=== PATIENT | female | born 1935 | race Hispanic/Latino ===

== ENCOUNTER 2018-06-21 13:37 | Inpatient (IN) | payer MEDICARE, OTHER ==
[~2018-06-21] VITALS: Ht 149.9 cm; Wt 71.2 kg
[~2018-06-21 13:37] MED LIST: ATORVASTATIN CA20 MG PO; FEXOFENADINE H180 MG PO; FUROSEMIDE20 MG PO; FUROSEMIDE40 MG PO; HYDRALAZINE HCL50 MG PO; LEVEMIR100 UNIT/1 SQ; LOSARTAN POTAS100 MG PO; METFORMIN HCL1000 MG PO; METOPROLOL SUCC25 MG PO; NORVASC5 MG PO; NOVOLIN 70100 UNITS/ SC; OMEPRAZOLE20 MG PO; OXYBUTYNIN CHLO10 MG PO; SYNTHROID50 MCG PO; TRUJEO SC; XARELTO10 MG PO; ZANTAC150 MG PO
[2018-06-21] MEDS ORDERED: MORPHINE SULFATE INJ 4 MG/ML INJ IV STA (14:03)
[2018-06-21] MEDS ORDERED: ONDANSETRON HCL INJ 2 MG/ML VIAL IV STA (14:03)
[2018-06-21] MEDS ORDERED: SODIUM CHLORIDE 0.9% 500ML 500 ML IV STA (14:03)
[2018-06-21] MEDS ORDERED: DIATRIZOATE MEGL/DIATRIZOA SOD 30 ML BTL PO ONE (14:16)
[2018-06-21 14:53] LABS: BASOPHILS % 0.3 % (0.0-1.0); HEMATOCRIT 34.7 % (34.2-44.1); HEMOGLOBIN 11.4 g/dL (12.0-16.0); LYMPHOCYTES # (AUTO) 1.1 (1.0-3.2); LYMPHOCYTES % 9.5 % (18.0-39.1); MEAN CORPUSCULAR HEMOGLOBIN 28.9 pg (28-32); MEAN CORPUSCULAR HGB CONC 32.9 g/dL (31-35); MEAN CORPUSCULAR VOLUME 88.1 fL (81-99); MONOCYTES # (AUTO) 0.9 (0.2-0.8); MONOCYTES % 7.4 % (4.4-11.3); NEUTROPHILS # (AUTO) 9.8 (2.1-6.9); NEUTROPHILS % 82.5 % (38.7-80.0); PLATELET COUNT 223 x10e3/uL (140-360); RED BLOOD COUNT 3.94 x10e6/uL (3.6-5.1); RED CELL DISTRIBUTION WIDTH 14.2 % (11.7-14.4)
[2018-06-21 14:59] LABS: INR 1.05; PROTHROMBIN TIME 14.6 seconds (11.9-14.5)
[2018-06-21 15:00] LABS: BILIRUBIN,URINE NEGATIVE (NEGATIVE); CLARITY,URINE SL CLOUDY (CLEAR); COLOR,URINE YELLOW (YELLOW); KETONES,URINE NEGATIVE (NEGATIVE); LEUKOCYTE ESTERASE ,URINE NEGATIVE (NEGATIVE); NITRITE,URINE NEGATIVE (NEGATIVE); PARTIAL THROMBOPLASTIN TIME 50.9 seconds (23.8-35.5); PROTEIN,URINE DIPSTICK 2+ (NEGATIVE); URINE UROBILINOGEN 0.2 mg/dL (0.2 - 1)
[2018-06-21 15:05] LABS: BACTERIA,URINE MANY /HPF; EPITHELIAL CELLS,URINE MANY /LPF; TRANSITIONAL EPI CELLS,URINE MODERATE; WBC,URINE (MAN) 0-5 /HPF (0-5)
[2018-06-21 15:09] LABS: ALBUMIN 3.5 g/dL (3.5-5.0); ALBUMIN/GLOBULIN RATIO 0.8 (0.8-2.0); ANION GAP 14.9 mmol/L (8-16); CREATININE, SERUM 2.02 mg/dL (0.57-1.11); MAGNESIUM 1.8 MG/DL (1.3-2.1); POTASSIUM 3.9 mmol/L (3.5-5.1)
--- NOTE | 2018-06-21 15:11 | Diagnostic Imaging Report ---
EXAMINATION: CHEST SINGLE (PORTABLE) INDICATION: Left-sided rib pain COMPARISON: None FINDINGS: TUBES and LINES: None. LUNGS: Perihilar peribronchial hazy opacity could be due to bronchitis or pulmonary edema. There may be a small left pleural effusion. PLEURA: No pneumothorax. HEART AND MEDIASTINUM: The cardiomediastinal silhouette is unremarkable. BONES AND SOFT TISSUES: No acute osseous lesion. Soft tissues are unremarkable. UPPER ABDOMEN: No free air under the diaphragm. IMPRESSION: Perihilar peribronchial hazy opacity could be due to bronchitis or pulmonary edema. There may be a small left pleural effusion. Follow-up imaging is indicated to document clearing Signed by: Dr. Hasmukh Yates M.D. on 06/21/2018 3:07 PM
[2018-06-21 15:15] LABS: CREATINE KINASE MB 0.6 ng/mL (0-5.0)
--- NOTE | 2018-06-21 17:02 | Diagnostic Imaging Report ---
EXAM: CT Abdomen and Pelvis WITHOUT contrast INDICATION: Abdominal pain. Epigastric pain. Nausea. COMPARISON: None. TECHNIQUE: Abdomen and pelvis were scanned utilizing a multidetector helical scanner from the lung base to the pubic symphysis without administration of IV contrast. Absence of intravenous contrast decreases sensitivity for detection of focal lesions and vascular pathology. Coronal and sagittal reformations were obtained. Routine protocol was performed. IV CONTRAST: None. ORAL CONTRAST: Gastrografin RADIATION DOSE: Total DLP: 435.73 mGy*cm Estimated effective dose: (DLP x 0.015 x size factor) mSv COMPLICATIONS: None FINDINGS: LINES and TUBES: None. LOWER THORAX: Moderate size right and small left pleural effusion with associated atelectasis. Small hiatal hernia. HEPATOBILIARY: Nodular contour to the liver could be due to cirrhosis. No focal hepatic lesions. No biliary ductal dilation. GALLBLADDER: Surgical clips in the gallbladder fossa. SPLEEN: No splenomegaly. PANCREAS: No focal masses or ductal dilatation. ADRENALS: No adrenal nodules KIDNEYS/URETERS: No hydronephrosis. No cystic or solid mass lesions. No stones. Mild perinephric fat stranding could be due to chronic medical renal disease. GI TRACT: Questionable gastric mucosal thickening could be due to gastritis. No bowel obstruction. Appendix is normal. PELVIC ORGANS/BLADDER: Unremarkable. LYMPH NODES: No lymphadenopathy. VESSELS: Scattered atherosclerotic vascular calcification. PERITONEUM / RETROPERITONEUM: No free air or fluid. BONES: Scattered degenerative change. SOFT TISSUES: Unremarkable. IMPRESSION: Limited study without the use of IV contrast. The detection and characterization of small masses and abscesses is limited without the use of IV contrast. Questionable gastric mucosal thickening could be due to gastritis. GI consultation recommended. Mild perinephric fat stranding could be due to chronic medical renal disease. Moderate size right and small left pleural effusion with associated atelectasis. Nodular contour to the liver could be due to cirrhosis. A nonemergent MRI of the abdomen is recommended for further evaluation. Signed by: Dr. Hasmukh Yates M.D. on 06/21/2018 4:58 PM
[2018-06-21] MEDS ORDERED: ASPIRIN 81 MG CHEW TAB PO ONE (17:45)
[2018-06-21] MEDS ORDERED: ONDANSETRON HCL INJ 2 MG/ML VIAL IV PRN (17:45)
[2018-06-21 20:40] VITALS: BP 185/79
[2018-06-21 21:43] VITALS: BP 185/79
[2018-06-21 23:40] VITALS: BP 181/79
[2018-06-22] VITALS (7 sets, daily range): BP systolic 144–201; BP diastolic 66–83
[2018-06-22 05:06] LABS: BASOPHILS % 0.5 % (0.0-1.0); EOSINOPHILS # (AUTO) 0.1 (0.0-0.4); EOSINOPHILS % 0.7 % (0.0-6.0); HEMATOCRIT 31.8 % (34.2-44.1); HEMOGLOBIN 10.6 g/dL (12.0-16.0); LYMPHOCYTES # (AUTO) 1.2 (1.0-3.2); LYMPHOCYTES % 13.6 % (18.0-39.1); MEAN CORPUSCULAR HEMOGLOBIN 28.9 pg (28-32); MEAN CORPUSCULAR HGB CONC 33.3 g/dL (31-35); MEAN CORPUSCULAR VOLUME 86.6 fL (81-99); MONOCYTES # (AUTO) 0.9 (0.2-0.8); MONOCYTES % 10.6 % (4.4-11.3); NEUTROPHILS # (AUTO) 6.4 (2.1-6.9); NEUTROPHILS % 74.4 % (38.7-80.0); PLATELET COUNT 195 x10e3/uL (140-360); RED BLOOD COUNT 3.67 x10e6/uL (3.6-5.1)
[2018-06-22 05:33] LABS: ANION GAP 13.1 mmol/L (8-16); CALCIUM 8.4 mg/dL (8.4-10.2); CREATININE, SERUM 1.76 mg/dL (0.57-1.11); POTASSIUM 4.1 mmol/L (3.5-5.1)
[2018-06-22 05:42] LABS: CREATINE KINASE MB 0.8 ng/mL (0-5.0)
--- NOTE | 2018-06-22 07:41 | Diagnostic Imaging Report ---
CHEST SINGLE (PORTABLE), 06/22/2018 7:00 AM Technique: CHEST SINGLE (PORTABLE) Comparison: Previous day Clinical history: Chest pain Findings: See Impression Impression: 1. Enlarged cardiac silhouette. 2. Increased diffuse opacities, likely edema with bibasilar atelectasis and layering effusions. Signed by: Dr Duyen Conner MD on 06/22/2018 6:33 AM
[2018-06-22] MEDS: FUROSEMIDE INJ 10 MG/ML 4 ML VIAL IV SCH (16:51)
[2018-06-22] MEDS ORDERED: HYDROMORPHONE 1MG/1ML INJ IV PRN (17:00)
[2018-06-22] MEDS: SODIUM CHLORIDE FLUSH 10 ML SYR INJ PRN ×2 (17:02→17:40)
[2018-06-22] MEDS ORDERED: HYDROMORPHONE 2MG/ML 2 MG/ML ML IV NR (17:30)
[2018-06-22] MEDS ORDERED: NALOXONE HCL INJ 0.4 MG/ML AMP IV PRN (18:30)
[2018-06-22] MEDS ORDERED: NALOXONE HCL INJ 0.4 MG/ML AMP ONE (18:33)
[2018-06-22] MEDS ORDERED: METOPROLOL TARTRATE INJ 1 MG/ML VIAL IV NR (18:45)
[2018-06-22] MEDS ORDERED: METOPROLOL TARTRATE INJ 1 MG/ML VIAL IV PRN (18:45)
--- NOTE | 2018-06-22 19:42 | Diagnostic Imaging Report ---
EXAMINATION: Head CT without contrast. HISTORY:Altered mental status. COMPARISON:CT and MRI brain from 12/14/2016. TECHNIQUE: Multidetector axial images were obtained from the foramen magnum to the vertex without contrast. The images were reconstructed using brain and bone algorithms. Thin section brain images were reformatted into coronal and sagittal planes. Dose modulation, iterative reconstruction, and/or weight based adjustment of the mA/kV was utilized to reduce the radiation dose to as low as reasonably achievable. Intravenous contrast: None IMAGE QUALITY: Suboptimal evaluation particularly of the skull base and posterior fossa structures due to streak artifacts. FINDINGS: Skull/scalp: No lytic or blastic. lesions. No surgical changes. Parenchyma: Nonspecific supratentorial white matter patchy hypodensity are likely related to small vessel ischemic changes. No acute hemorrhage, mass or acute major vascular territorial infarct. Arteries: No density suggestive of thrombosis. Atherosclerotic calcification in bilateral carotid siphon. Dural sinuses: No abnormal density suggestive of thrombosis. Ventricles: No hydrocephalus or displacement. 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 Brain volume: Normal for age. Craniocervical junction: No mass, Chiari malformation, or basilar invagination. Sella: No mass. Paranasal/mastoid sinuses: Imaged portions unremarkable. IMPRESSION: No acute intracranial abnormality. Mild to moderate supratentorial white matter microvascular ischemic changes. Signed by: Dr. Paula Roberts M.D. on 06/22/2018 7:41 PM
[2018-06-22] MEDS ORDERED: LOSARTAN POTASSIUM 100 MG TAB PO SCH (21:00)
[2018-06-22] MEDS ORDERED: FUROSEMIDE 40 MG TAB PO SCH (21:00)
[2018-06-22] MEDS: ATORVASTATIN 20 MG TAB PO SCH (21:37)
[2018-06-23] VITALS (8 sets, daily range): BP systolic 122–177; BP diastolic 56–77
[2018-06-23 05:06] LABS: BASOPHILS % 0.3 % (0.0-1.0); EOSINOPHILS % 0.1 % (0.0-6.0); HEMATOCRIT 35.1 % (34.2-44.1); HEMOGLOBIN 11.7 g/dL (12.0-16.0); LYMPHOCYTES # (AUTO) 1.1 (1.0-3.2); LYMPHOCYTES % 9.2 % (18.0-39.1); MEAN CORPUSCULAR HGB CONC 33.3 g/dL (31-35); MEAN CORPUSCULAR VOLUME 87.1 fL (81-99); MONOCYTES # (AUTO) 0.7 (0.2-0.8); MONOCYTES % 6.1 % (4.4-11.3); NEUTROPHILS # (AUTO) 9.6 (2.1-6.9); NEUTROPHILS % 83.9 % (38.7-80.0); PLATELET COUNT 241 x10e3/uL (140-360); RED BLOOD COUNT 4.03 x10e6/uL (3.6-5.1); RED CELL DISTRIBUTION WIDTH 13.6 % (11.7-14.4)
[2018-06-23 05:30] LABS: ANION GAP 16.3 mmol/L (8-16); CALCIUM 8.8 mg/dL (8.4-10.2); CREATININE, SERUM 2.22 mg/dL (0.57-1.11); POTASSIUM 4.3 mmol/L (3.5-5.1)
[2018-06-23] MEDS: LEVOTHYROXINE SODIUM 50 MCG TAB PO SCH (06:13)
[2018-06-23] MEDS ORDERED: FUROSEMIDE 40 MG TAB PO SCH ×2 (09:00)
--- NOTE | 2018-06-23 09:08 | Consultation ---
DATE OF CONSULTATION: June 22, 2018 CARDIOLOGY CONSULTATION REFERRING PHYSICIAN: Dr. Armen Gonzalez REASON FOR CONSULTATION: CHF. HPI: This is a pleasant, 82-year-old female that presented with epigastric pain. According to the patient, for the last 4 to 5 days, she has been having epigastric pain accompanied with nausea, not able to eat, so she came in for evaluation. She said the pain also gets worse with deep breathing and coughing. In the emergency room, she was found with AFib with RVR. She was given 5 mg of metoprolol IV, and the heart rate slowed down. She also stated yesterday she was in a lot of pain. She was given some Dilaudid for pain, and it made her feel real bad. They had to call rapid response and gave her some Narcan to reverse the effect. She denies any palpitations, any diaphoresis, any dizziness, any shortness of breath or headache. Troponin times 3 was negative. EKG showed slow AFib with heart rate in the 50s. BNP was 752. Chest x-ray showed possible pulmonary edema with small left pleural effusion. PAST MEDICAL HISTORY: CKD, stroke, pulmonary hypertension, hyperlipidemia, chronic pain, CHF type unknown, diabetes, hypothyroidism. PAST SURGICAL HISTORY: Cholecystectomy and hysterectomy. FAMILY HISTORY: Noncontributory. SOCIAL HISTORY: No smoking. No drinking. She lives at home alone by herself. MEDICATIONS: She was on Synthroid, atorvastatin, Losartan, Norvasc, insulin, Zantac, furosemide, amlodipine, and Xarelto. ALLERGIES: SHE IS ALLERGIC TO PENICILLIN. REVIEW OF SYSTEMS: Negative, except those mentioned above. PHYSICAL EXAMINATION VITAL SIGNS: Temperature 97, heart rate 50, blood pressure 137/63, respirations 19, oxygen saturation 99% on 2 L nasal cannula. GENERAL: She is awake, alert and oriented times 3. HEENT: Mucous membranes are moist. NECK: Supple. LUNGS: Bilaterally with decreased breath sounds. CARDIOVASCULAR: Irregularly irregular. ABDOMEN: Soft. Still complaining of pain. NEUROLOGIC: Intact. EXTREMITIES: No edema. LABS: Sodium 135, potassium 4.3, chloride 100, CO2 23, BUN 37, creatinine 2.22, glucose 173. White blood cells 11.4, hemoglobin 11.7, hematocrit 35.1, platelets 241. PT 14.6, PTT 50.9, INR 1.05. IMPRESSION 1. Congestive heart failure, type unknown. 2. Abdominal pain. 3. Slow atrial fibrillation. 4. Diabetes. 5. Chronic kidney disease. 6. Hypothyroidism. ASSESSMENT AND PLAN 1. We will go ahead and get an echocardiogram to assess the LV and valve function. 2. Heart rate is on the low side. She received some IV metoprolol yesterday that slowed the heart rate down. She is asymptomatic, so we will go ahead and avoid beta fransisco for now. 3. Will continue low salt diet and put her on 1.5-liter fluid restriction. 4. Continue her home medications. 5. If any surgical procedure is planned, we will go ahead and hold the Xarelto. 6. Will continue diuretics. 7. Further cardiac workup pending clinical course. Thank you for this consultation. Dictated by Hollis Davis NP Job#: [id number]
[2018-06-23] MEDS: FUROSEMIDE INJ 10 MG/ML 4 ML VIAL IV SCH (09:16)
[2018-06-23] MEDS: RIVAROXABAN 10 MG TABLET PO SCH (09:16)
[2018-06-23] MEDS: FAMOTIDINE 20 MG TAB PO SCH (09:16)
[2018-06-23] MEDS: PANTOPRAZOLE 40 MG 10ML VIAL IV SCH (09:16)
[2018-06-23] MEDS: AMLODIPINE BESYLATE 5 MG TAB PO SCH (09:16)
[2018-06-23] MEDS: ATORVASTATIN 20 MG TAB PO SCH (20:02)
[2018-06-24 04:10] VITALS: BP 110/56
[2018-06-24] MEDS: LEVOTHYROXINE SODIUM 50 MCG TAB PO SCH (06:32)
[2018-06-24 07:35] VITALS: BP 165/73
[2018-06-24 08:05] VITALS: BP 165/73
[2018-06-24] MEDS: PANTOPRAZOLE 40 MG 10ML VIAL IV SCH (08:06)
[2018-06-24] MEDS: FUROSEMIDE INJ 10 MG/ML 4 ML VIAL IV SCH (08:06)
[2018-06-24] MEDS: RIVAROXABAN 10 MG TABLET PO SCH (08:07)
[2018-06-24] MEDS: AMLODIPINE BESYLATE 5 MG TAB PO SCH (08:07)
[2018-06-24] MEDS: FAMOTIDINE 20 MG TAB PO SCH (08:07)
[2018-06-24] MEDS ORDERED: HYDRALAZINE HCL25 MG PO (08:56)
[2018-06-24] MEDS ORDERED: GLYBURIDE5 MG PO (08:56)
[2018-06-24] MEDS ORDERED: NITROGLYCERIN0.4 MG SL (08:56)
[2018-06-24 11:45] VITALS: BP 135/63
[2018-06-24] MEDS ORDERED: DEXTROSE 50% SYRINGE 50 ML IV PRN (13:00)
--- NOTE | 2018-06-24 16:15 | Consultation ---
DATE OF CONSULTATION: June 24, 2018 RENAL CONSULTATION HISTORY OF PRESENT ILLNESS: This is an 82-year-old female who is known to our nephrology service, follows up with Dr. Moreno, my associate, as an outpatient for chronic kidney disease stage 3, underlying diabetic nephropathy. Presented with abdominal pain. Mostly the pain is on the left side. She has been having heartburn and burning in the stomach area. Dr. Portillo Gonzalez is on the case. __PHYSICAL EXAMINATION: GENERAL: Currently awake, alert, lying supine, no apparent distress. VITAL SIGNS: Blood pressure of 135/63, pulse rate 48, afebrile, respiratory rate 17. HEAD AND NECK: Cornea clear. Oral mucosa dry. LUNGS: Relatively clear. No rales. HEART: S1/S2 audible. ABDOMEN: Otherwise soft, nontender. LOWER EXTREMITIES: No edema. CURRENT MEDICATIONS: Ondansetron p.r.n. Famotidine 220 mg daily. Rivaroxaban 50 mg daily. Furosemide 40 mg daily. Amlodipine 10 mg daily. Insulin, lispro. Levothyroxine 50 mcg daily. Atorvastatin, pantoprazole, metoprolol p.r.n. PAST HISTORY: History of pulmonary hypertension. Hyperlipidemia. CHF. Diabetes. Hypothyroidism. Prior cholecystectomy, hysterectomy. History of stroke. Chronic kidney disease stage 3. SOCIAL HISTORY: Does not smoke or drink. FAMILY HISTORY: Significant for hypertension. __PHYSICAL EXAMINATION: GENERAL: Awake, alert, oriented times 3, lying supine in bed. No apparent distress. VITALS: Blood pressure 135/63. Pulse rate 48. Afebrile. HEAD AND NECK: Cornea clear. Oral mucosa dry. LUNGS: Relatively clear. No rales or rhonchi. HEART: S1/S2 audible. ABDOMEN: Otherwise soft, nontender. LOWER EXTREMITY EXAMINATION: Shows no clearcut edema. IMPRESSION: [id number] kidney failure, underlying chronic kidney disease 3, possibly 4. Will obtain records from our office. Will obtain spot urine protein-creatinine ratio. Kidney ultrasound. I suspect she probably has irritable bowel syndrome. Labs show sodium 135. Potassium 4.3. Bicarbonate 23. Creatinine 2.2. Hemoglobin 11.7. INR 1.05. AST 24. ALT 13. Alkaline phosphatase 142. Total bilirubin 1.8. Workup ordered. Discussed with patient. I will discuss with Dr. Portillo Gonzalez. Job#: [id number] EV
[2018-06-24 16:20] VITALS: BP 149/67
[2018-06-24] MEDS: INSULIN LISPRO 100 UNIT/1 ML 3ML VIAL SQ SCH ×3 (16:50→21:15)
[2018-06-24 20:00] VITALS: BP 152/58
[2018-06-24] MEDS: ATORVASTATIN 20 MG TAB PO SCH (21:10)
[2018-06-25] VITALS (8 sets, daily range): BP systolic 118–181; BP diastolic 47–73
[2018-06-25] MEDS: MECLIZINE HCL 12.5 MG TAB PO SCH ×3 (02:10→20:55)
[2018-06-25 05:08] LABS: ALBUMIN 2.8 g/dL (3.5-5.0); ALBUMIN/GLOBULIN RATIO 0.7 (0.8-2.0); ANION GAP 15.5 mmol/L (8-16); CALCIUM 8.4 mg/dL (8.4-10.2); CREATININE, SERUM 3.51 mg/dL (0.57-1.11); POTASSIUM 4.5 mmol/L (3.5-5.1)
[2018-06-25] MEDS: LEVOTHYROXINE SODIUM 50 MCG TAB PO SCH (06:45)
[2018-06-25] MEDS: INSULIN LISPRO 100 UNIT/1 ML 3ML VIAL SQ SCH ×4 (07:30→20:55)
[2018-06-25] MEDS: RIVAROXABAN 10 MG TABLET PO SCH (09:00)
[2018-06-25] MEDS ORDERED: MECLIZINE HCL 12.5 MG TAB PO SCH (09:00)
[2018-06-25] MEDS: FUROSEMIDE INJ 10 MG/ML 4 ML VIAL IV SCH (09:00)
--- NOTE | 2018-06-25 09:19 | Diagnostic Imaging Report ---
EXAMINATION: Renal ultrasound. CLINICAL HISTORY :Acute kidney injury, left flank pain COMPARISON: <None available.> TECHNIQUE: Grayscale and color Doppler evaluation of the kidneys and bladder was performed in transverse and longitudinal planes. DISCUSSION: RIGHT KIDNEY: The right kidney measures 10.3 cm in length and shows increased echogenicity. No hydronephrosis, shadowing calculi or solid mass lesions. LEFT KIDNEY: The left kidney measures 10.6 cm in length and shows increased echogenicity. No hydronephrosis, shadowing calculi or solid mass lesions. BLADDER: Unremarkable. IMPRESSION: Increased renal echogenicity reflective of nonspecific medical renal disease. No obstruction. Signed by: Dr. Hunter Zapata M.D. on 06/25/2018 9:16 AM
[2018-06-25] MEDS: PANTOPRAZOLE 40 MG 10ML VIAL IV SCH (10:00)
[2018-06-25] MEDS: AMLODIPINE BESYLATE 5 MG TAB PO SCH (10:00)
[2018-06-25] MEDS: FAMOTIDINE 20 MG TAB PO SCH (10:00)
[2018-06-25] MEDS: SODIUM CHLORIDE 0.9% 1000ML 1,000 ML IV SCH ×2 (11:32→20:15)
--- NOTE | 2018-06-25 16:23 | Operative Report ---
DATE OF PROCEDURE: June 25, 2018 REFERRING PHYSICIAN: Dr. Syde Connor. PROCEDURE PERFORMED: Esophagogastroduodenoscopy. INDICATIONS FOR ESOPHAGOGASTRODUODENOSCOPY: Upper abdominal pain, nausea, history of acid reflux. MEDICATION: Patient was done under MAC. Please see anesthesiologist's note. PROCEDURE: With the patient in the left lateral decubitus position, the flexible fiberoptic Olympus gastroscope was introduced into the esophagus under direct visualization without any difficulty. There was some patchy erythema noted in the distal esophagus. The scope was then advanced with ease into the stomach. Mucosa overlying the antrum and the body revealed some patchy erythema and mild to moderate edema, and biopsies were obtained and sent to stain for H. pylori. The pylorus was of normal contour and shape, was intubated with ease, and the scope was advanced all the way to the 2nd portion of the duodenum. The scope was then withdrawn slowly. Mucosa overlying the proximal 2nd portion and the duodenal bulb appeared to be within normal limits. The scope was then withdrawn back into the stomach and retroflexed, and mucosa overlying the fundus and the cardia appeared to be within normal limits. The scope was then straightened out. The stomach was decompressed. The scope was subsequently withdrawn. Patient tolerated the procedure well. IMPRESSION: 1. Distal esophagitis, mild. 2. Gastritis biopsied. Biopsies sent to stain for H. pylori. PLAN: Follow up histology. Initiate Protonix 40 mg 1 p.o. q.a.m. a.c. Job#: [id number] EV cc:SYED CONNOR MD
[2018-06-25] MEDS ORDERED: PROPOFOL IV EMULSION 10 MG/ML 50 ML VIAL ONE (19:21)
[2018-06-25] MEDS: ATORVASTATIN 20 MG TAB PO SCH (20:55)
[2018-06-26] VITALS: BP 121/64
[2018-06-26 04:00] VITALS: BP 142/48
[2018-06-26] MEDS: SODIUM CHLORIDE 0.9% 1000ML 1,000 ML IV SCH (06:54)
[2018-06-26] MEDS: LEVOTHYROXINE SODIUM 50 MCG TAB PO SCH (06:54)
[2018-06-26] MEDS: INSULIN LISPRO 100 UNIT/1 ML 3ML VIAL SQ SCH ×3 (07:30→16:30)
[2018-06-26 08:00] VITALS: BP 145/67
[2018-06-26] MEDS: FAMOTIDINE 20 MG TAB PO SCH (08:56)
[2018-06-26] MEDS: RIVAROXABAN 10 MG TABLET PO SCH (08:56)
[2018-06-26] MEDS: MECLIZINE HCL 12.5 MG TAB PO SCH ×2 (08:56→15:00)
[2018-06-26] MEDS: PANTOPRAZOLE 40 MG 10ML VIAL IV SCH (08:56)
[2018-06-26] MEDS: AMLODIPINE BESYLATE 5 MG TAB PO SCH (08:56)
[2018-06-26 12:00] VITALS: BP 156/70
[2018-06-26] MEDS ORDERED: PANTOPRAZOLE SO40 MG PO ×2 (16:20→16:22)
[2018-06-27] MEDS ORDERED: AMLODIPINE BESYLATE 10 MG TAB PO SCH (09:00)
== END 2018-06-26 17:49 | disposition home or self-care (01) | DRG 682 ==
LOC: ER 13:37 → ERHOLD 17:42 → IMCU 19:20 → MED/SURG2 20:11 → OBSVTOIN 06-23 13:08
PROC: 0DB78ZX Excision of Stomach, Pylorus, Via Natural or Artificial Opening Endoscopic, Diagnostic (ICD-10-PCS; principal; 2018-06-25 15:00)
DX: I12.9 Hypertensive chronic kidney disease with stage 1 through stage 4 chronic kidney disease, or unspecified chronic kidney disease (principal); I50.33 Acute on chronic diastolic (congestive) heart failure; N17.9 Acute kidney failure, unspecified; E11.22 Type 2 diabetes mellitus with diabetic chronic kidney disease; N18.3 Chronic kidney disease, stage 3 (moderate); I48.2 Chronic atrial fibrillation; K58.8 Other irritable bowel syndrome; I27.20 Pulmonary hypertension, unspecified; E78.5 Hyperlipidemia, unspecified; E03.9 Hypothyroidism, unspecified; I48.91 Unspecified atrial fibrillation; K21.9 Gastro-esophageal reflux disease without esophagitis; K29.70 Gastritis, unspecified, without bleeding; R41.82 Altered mental status, unspecified; R42 Dizziness and giddiness; I25.10 Atherosclerotic heart disease of native coronary artery without angina pectoris; G89.29 Other chronic pain; T40.2X5A Adverse effect of other opioids, initial encounter; Y92.230 Patient room in hospital as the place of occurrence of the external cause; Z79.01 Long term (current) use of anticoagulants; Z79.4 Long term (current) use of insulin; Z88.0 Allergy status to penicillin
CPT/HCPCS: 36415; 43239; 70450; 71045; 74176; 76770; 80048; 80053; 81001; 82150; 82550; 82553; 82948; 83690; 83735; 83880; 84484; 85025; 85610; 85730; 87086; 88305; 88312; 93005; 93306; 99284; G0378; J1170; J1940; J2270; J2310; J2405; J7030; J7040